=== PATIENT | male | born 1955 | race Caucasian/White ===

== ENCOUNTER 2016-04-15 13:24 | Emergency (ER) | payer OTHER ==
[~2016-04-15] VITALS: Ht 172.7 cm; Wt 66.5 kg
[~2016-04-15 13:24] MED LIST: HYDR-3720 PO; IBUP800T25 PO; METH-70 PO
[2016-04-15 13:27] VITALS: Ht 172.7 cm; Wt 66.5 kg
[2016-04-15] MEDS ORDERED: KETOROLAC 30 MG INJ IM STA (13:51)
[2016-04-15] MEDS ORDERED: IBUP-1542 PO (14:32)
[2016-04-15] MEDS ORDERED: ULT50 PO (14:32)
--- NOTE | 2016-04-15 14:34 | ERD ---
ER Documentation Chief Complaint Date/Time DATE: 04/15/16 TIME: 14:33 Chief Complaint neck pain x 2 weeks HPI This 60-year-old male presents with neck pain for last 2 weeks. He describes it as being on the posterior right side of his neck. He denies any specific inciting events or history of trauma. He believes it may have started while driving. He denies any bowel or bladder incontinence, weakness, fevers, cough, shortness breath or chest pain. ROS All systems reviewed and are negative except as per history of present illness. Medications Home Meds Active Scripts Tramadol HCl (Tramadol HCl) 50 Mg Tablet, 50 MG PO Q4 Y for PAIN, #20 TAB Prov:CHERYL BRIONES MD 04/15/16 Ibuprofen* (Motrin*) 600 Mg Tab, 600 MG PO Q6, #20 TAB Prov:CHERYL BRIONES MD 04/15/16 Hydrocodone Bit-Acetaminophen* ([place]*) 7.5-325 Tablet, 1 TAB PO Q4H Y for PAIN , #20 TAB Prov:ZOILA LOPEZSTOLOS A. DO 11/03/15 Methocarbamol* (Robaxin*) 750 Mg Tablet, 750 MG PO TID, #30 TAB Prov:LEKKOSAPOSTOLOS A. DO 11/03/15 Ibuprofen* (Motrin*) 800 Mg Tab, 800 MG PO Q6H Y for PAIN AND OR ELEVATED TEMP, #30 TAB Prov:LEKKOSAPOSTOLOS A. DO 11/03/15 Allergies Allergies: Coded Allergies: No Known Drug Allergies (Verified Allergy, Mild, 11/02/15) PMhx/Soc History of Surgery: No Anesthesia Reaction: No Hx Neurological Disorder: No Hx Respiratory Disorders: No Hx Cardiac Disorders: Yes (HIGH CHO-DIET CONTROLLED) Hx Psychiatric Problems: No Hx Miscellaneous Medical Probl: Yes (pt has one kidney) Hx Alcohol Use: No Hx Substance Use: No Hx Tobacco Use: Yes (quit 19 years ago) Physical Exam Vitals Vital Signs Date Time Temp Pulse Resp B/P Pulse Ox O2 Delivery O2 Flow Rate FiO2 04/15/16 13:27 97.4 87 20 126/84 98 Physical Exam Const: [] Alert, [id number]. Head: Atraumatic Eyes: Normal Conjunctiva ENT: Normal External Ears, Nose and Mouth. Airway patent. Neck: Full range of motion..~ No meningismus. There is some tenderness in the right cervical paraspinous muscles. There is no appreciable midline tenderness or deformities. There is no masses, warmth or erythema or induration. Resp: Clear to auscultation bilaterally Cardio: Regular rate and rhythm, no murmurs Abd: Soft, non tender, non distended. Normal bowel sounds Skin: No petechiae or rashes Back: No midline or flank tenderness Ext: No cyanosis, or edema Neur: Awake and alert Psych: Normal Mood and Affect Results 24 hrs Current Medications Medications (Trade) Dose Ordered Sig/Maria Fernanda Route PRN Reason Start Time Stop Time Status Last Admin Dose Admin Ketorolac Tromethamine (Toradol) 30 mg ONCE STAT IM 04/15/16 13:51 04/15/16 13:52 DC Procedures/MDM X-ray C spine 3V Interpreted by me: Bones: [No fracture] Joints: [No dislocation] Foreign body: [None]. Impression-no acute findings of C-spine x-ray except for mild degenerative changes Patient was given Toradol 30 mg IM. Patient presents with nontraumatic neck pain without evidence to suggest abscess, neurologic deficit, bacterial infection, fracture, dislocation. He likely has musculoskeletal strain pinched nerve. Patient was treated with ibuprofen and tramadol and observation at home. The patient was stable with no new complaints during the ER course. Clinically, there is no current evidence to suggest meningitis, sepsis, acute abdomen, pneumonia, acute coronary syndrome, pulmonary embolism, or any other emergent condition appearing to require further evaluation or hospitalization. The patient should certainly return for any new or worsening symptoms per the aftercare instructions. They should otherwise follow-up with her primary care doctor for reevaluation this week. Departure Diagnosis: Primary Impression: Neck pain Condition: Stable Patient Instructions: Neck Pain, No Trauma Additional Instructions: X RAY NORMAL. PROBABLAMENTE MUSCULO/ NERVIO. Cheque otro vez con peres doctor primario en el proximo baires or regresa para mas o nueva simptomas. CHERYL BRIONES MD Apr 15, 2016 14:34
--- NOTE | 2016-04-15 14:37 | RADRPT ---
PROCEDURE: XR Cervical Spine. CLINICAL INDICATION: Cervical spine pain. TECHNIQUE: AP, lateral and odontoid views of the cervical spine were performed. The images were re viewed on a PACS workstation. COMPARISON: None available FINDINGS: The alignment of the cervical spine is within normal limits. There are small anterior osteophytes f rom C4-5 to C6-7 without significant narrowing of the disc-spaces. The vertebral body height and os seous mineralization are normal. There is no evidence of fracture or dislocation. There is no signif icant facet arthropathy. There are no abnormal calcifications. The prevertebral soft tissues are nor mal. No radiopaque foreign bodies are identified. IMPRESSION: 1. Mild degenerative disc disease from C4-5 to C6-7 with preservation of the intervertebral discs. 2. Diffuse mild facet spondylosis. 3. No acute fracture. RPTAT: DD .Harrison Licea MD, Date Time Electronically viewed and signed by .Harrison Licea MD, on 04/15/2016 14:37 .S/
== END 2016-04-15 16:09 | disposition home or self-care (01) ==
LOC: FTE 13:24
DX: M54.2 Cervicalgia (principal)
CPT/HCPCS: 72040; 96372; J1885; Z7502

== ENCOUNTER 2017-10-17 15:17 | Observation (INO) | END 2017-10-18 17:16 | disposition home or self-care (01) ==

== ENCOUNTER 2018-03-13 12:12 | Emergency (ER) | END 2018-03-13 14:35 | disposition home or self-care (01) ==

== ENCOUNTER 2018-08-20 16:24 | Observation (INO) | payer OTHER ==
[~2018-08-20] VITALS: Ht 170.2 cm; Wt 63.0 kg
[2018-08-20] MEDS ORDERED: ASPIRIN 81 MG TAB PO STA (16:58)
[2018-08-20] MEDS ORDERED: NITROGLYCERIN 2% 1 GM OINT PKT TD STA (16:58)
[2018-08-20] MEDS ORDERED: NITROGLYCERIN (SL) 0.4 MG TAB SL PRN (17:00)
[2018-08-20] MEDS ORDERED: CLOP75TA19 PO (17:39)
[2018-08-20] MEDS ORDERED: ASPI-817 PO (17:39)
[2018-08-20] MEDS ORDERED: RANO500T2 PO (17:39)
[2018-08-20] MEDS ORDERED: ATOR-2 PO (17:40)
[2018-08-20] MEDS ORDERED: ONDANSETRON 4 MG INJ IV PRN (18:30)
[2018-08-20] MEDS ORDERED: ACETAMINOPHEN 325 MG TAB PO PRN (18:30)
--- NOTE | 2018-08-20 18:41 | ERD ---
ER Documentation Chief Complaint Chief Complaint c/o left sided chest pain, nonprovoked. Had heart stents 3 months ago HPI Patient is a 62-year-old male with coronary disease who presents with chest pain. He has left-sided chest pain which comes and goes and started this afternoon. Is a pressure-like type pain. He has had no treatment as of yet. He does not remember the name of his primary doctor or senior mobile application developer. ROS All systems reviewed and are negative except as per history of present illness. Medications Home Meds Reported Medications Atorvastatin* (Atorvastatin*) 80 Mg Tablet, 80 MG PO QHS, #30 TAB 08/20/18 Clopidogrel Bisulfate* (Clopidogrel Bisulfate*) 75 Mg Tablet, 75 MG PO DAILY, #30 TAB 08/20/18 Aspirin* (Aspirin* EC) 81 Mg Tablet.dr, 81 MG PO DAILY, TAB 08/20/18 Ranolazine* (Ranexa*) 500 Mg Tab.sr.12h, 500 MG PO Q12, TAB 08/20/18 Allergies Allergies: Coded Allergies: No Known Drug Allergies (Verified Allergy, Mild, 08/20/18) PMhx/Soc History of Surgery: No Anesthesia Reaction: No Hx Neurological Disorder: No Hx Respiratory Disorders: No Hx Cardiac Disorders: Yes (PA, HEART STENT X2) Hx Psychiatric Problems: No Hx Miscellaneous Medical Probl: Yes (hyperlipidemia) Hx Alcohol Use: No Hx Substance Use: No Hx Tobacco Use: No Smoking Status: Former smoker FmHx Family History: coronary disease Physical Exam Vitals Vital Signs Date Temp Pulse Resp B/P (MAP) Pulse Ox O2 O2 Flow FiO2 Time Delivery Rate 08/20/18 97.8 88 20 140/85 98 Room Air 18:35 (103) 08/20/18 Nasal 2 17:12 Cannula 08/20/18 97.8 72 20 145/96 98 16:39 (112) Physical Exam Const: No acute distress Head: Atraumatic Eyes: Normal Conjunctiva ENT: Normal External Ears, Nose and Mouth. Neck: Full range of motion. No meningismus. Resp: Clear to auscultation bilaterally Cardio: Regular rate and rhythm, no murmurs Abd: Soft, non tender, non distended. Normal bowel sounds Skin: No petechiae or rashes Back: No midline or flank tenderness Ext: No cyanosis, or edema Neur: Awake and alert Psych: Normal Mood and Affect Result Diagram: 08/20/18 1658 08/20/18 1718 Results 24 hrs Laboratory Tests Test 08/20/18 16:58 08/20/18 17:18 White Blood Count 7.7 10^3/ul Red Blood Count 4.96 10^6/ul Hemoglobin 14.9 g/dl Hematocrit 45.2 % Mean Corpuscular Volume 91.1 fl Mean Corpuscular Hemoglobin 30.0 pg Mean Corpuscular Hemoglobin Concent 33.0 g/dl Red Cell Distribution Width 12.2 % Platelet Count 252 10^3/UL Mean Platelet Volume 10.7 fl Immature Granulocytes % 0.500 % Neutrophils % 61.5 % Lymphocytes % 25.1 % Monocytes % 9.7 % Eosinophils % 2.3 % Basophils % 0.9 % Nucleated Red Blood Cells % 0.0 /100WBC Immature Granulocytes # 0.040 10^3/ul Neutrophils # 4.7 10^3/ul Lymphocytes # 1.9 10^3/ul Monocytes # 0.7 10^3/ul Eosinophils # 0.2 10^3/ul Basophils # 0.1 10^3/ul Nucleated Red Blood Cells # 0.0 10^3/ul Sodium Level 142 mmol/L Potassium Level 3.9 mmol/L Chloride Level 107 mmol/L Carbon Dioxide Level 27 mmol/L Anion Gap 8 Blood Urea Nitrogen 11 mg/dl Creatinine 0.87 mg/dl Est Glomerular Filtrat Rate mL/min > 60 mL/min Glucose Level 126 mg/dl Calcium Level 9.5 mg/dl Troponin I < 0.012 ng/ml Current Medications Medications Dose Sig/Maria Fernanda Start Time Status Last (Trade) Ordered Route PRN Stop Time Admin Dose Reason Admin Aspirin 162 mg ONCE STAT 08/20/18 DC 08/20/18 (Aspirin) PO 16:58 17:25 08/20/18 16:59 1 inch ONCE STAT 08/20/18 DC 08/20/18 Nitroglycerin TD 16:58 17:25 08/20/18 16:59 (Nitroglyceri n 2% Oint) 1 tab Q5M UP TO 3 08/20/18 Nitroglycerin DOSES PRN 17:00 SL .CHEST (Nitroglyceri PAIN n (Sl Tab) 0.4 Mg) Ondansetron 4 mg ER BRIDGE 08/20/18 HCl (Zofran PRN IV 18:30 Inj) NAUSEA/VOMITI 08/21/18 18:29 NG 650 mg ER BRIDGE 08/20/18 Acetaminophen PRN PO 18:30 (Tylenol .MILD PAIN 08/21/18 18:29 Tab) 1-3 OR TEMP Procedures/MDM EKG #1 read by me: Rate/Rhythm: Regular rate and rhythm at a normal rate Intervals: Normal Impression: No evidence of ischemia or arrhythmia EKG #2 read by me: Rate/Rhythm: Regular rate and rhythm at a normal rate Intervals: Normal Impression: No evidence of ischemia or arrhythmia Chest X-ray 1V Interpreted by me: Soft Tissue: No acute abnormalities Bones: No acute abnormalities Mediastinum/Cardiac Silhouette/Lungs: No acute abnormalities Patient is a 62-year-old male with coronary disease with a history of 2 stents who presents with chest pain. Initial troponin is negative. 2 EKGs were normal. Chest x-ray was negative for pneumonia or pneumothorax. I am concerned for acute coronary syndrome and the patient was given aspirin and nitroglycerin. I doubt pneumonia, pneumothorax, pulmonary embolism, or aortic dissection. The patient will be admitted to a telemetry observation bed to the care of Dr. Baez from the panel team. Departure Diagnosis: Primary Impression: Chest pain Chest pain type: unspecified Qualified Codes: R07.9 - Chest pain, unspecified Condition: DAO Albrecht MD August 20, 2018 18:41
--- NOTE | 2018-08-20 19:11 | HP ---
Date/Time of Note Date/Time of Note DATE: 08/20/18 TIME: 19:00 Assessment/Plan VTE Prophylaxis Pharmacological prophylaxis: heparin Lines/Catheters IV C[facility]ter Type [facility]from [facility]): [facility] Assessment/Plan Hospital Course 62 yo male with h/o CAD s/p PCI to LAD with recent normal angiogram presents with atypical chest pain - By history, seems consistent with pleuritic pain/Ella's twinge type pain. I doubt this is cardiac but given history we will trend troponin to exclude ACS. Will check a d-dimer to exclude PE given pleurisy. If tests negative he can be discharged to follow up with his regular monitor and storage bin tender CAD: - Continue aspirin, plavix, and atorvastatin Result Diagram: 08/20/18 1658 08/20/18 1718 Results 24hrs Laboratory Tests Test 08/20/18 16:58 08/20/18 17:18 White Blood Count 7.7 Red Blood Count 4.96 Hemoglobin 14.9 Hematocrit 45.2 Mean Corpuscular Volume 91.1 Mean Corpuscular Hemoglobin 30.0 Mean Corpuscular Hemoglobin Concent 33.0 Red Cell Distribution Width 12.2 Platelet Count 252 Mean Platelet Volume 10.7 H Immature Granulocytes % 0.500 H Neutrophils % 61.5 Lymphocytes % 25.1 Monocytes % 9.7 Eosinophils % 2.3 Basophils % 0.9 Nucleated Red Blood Cells % 0.0 Immature Granulocytes # 0.040 H Neutrophils # 4.7 Lymphocytes # 1.9 Monocytes # 0.7 Eosinophils # 0.2 Basophils # 0.1 Nucleated Red Blood Cells # 0.0 Sodium Level 142 Potassium Level 3.9 Chloride Level 107 Carbon Dioxide Level 27 Anion Gap 8 Blood Urea Nitrogen 11 Creatinine 0.87 Est Glomerular Filtrat Rate mL/min > 60 Glucose Level 126 Calcium Level 9.5 Troponin I < 0.012 HPI/ROS Admit Date/Time Admit Date/Time Hx of Present Illness 62 yo male with h/o CAD and previous stents who presents with CP Brings records with him. Followed by cardiologists at [facility]. Had LAD PCI performed last year. Had atypical chest pain. MRI showed mild scar. Went for angiogram showing patient vessels and stents in 06/2018. Has suffered from vertigo for which he sees vestibular specialists at [facility]. Seems his monitor and storage bin tender has deemed these issues non-cardiac in origin. Today he presents with a few episodes of stabbing chest pain. Occured at rest. [place] a few fleeting stabbing pleuritc pains with breathing. Resolved in seconds. Was scared to take deep breaths as a result He is adherent to DAPT and statin. ROS Constitutional: no complaints, improved Eyes: no complaints ENT: no complaints Respiratory: no complaints Cardiovascular: no complaints Gastrointestinal: no complaints Genitourinary: no complaints Musculoskeletal: no complaints Skin: no complaints Neurologic: no complaints Endocrine: no complaints Lymphatic: no complaints Psychological: no complaints, nl mood/affect Immunologic: no complaints PMH/Family/Social Past Medical History Medical History: coronary artery disease Medications Current Medications Nitroglycerin (Nitroglycerin (Sl Tab) 0.4 Mg) 1 tab Q5M UP TO 3 DOSES PRN SL .CHEST PAIN; Start 08/20/18 at 17:00 Ondansetron HCl (Zofran Inj) 4 mg ER BRIDGE PRN IV NAUSEA/VOMITING; Start 08/20/18 at 18:30; Stop 08/21/18 at 18:29 Acetaminophen (Tylenol Tab) 650 mg ER BRIDGE PRN PO .MILD PAIN 1-3 OR TEMP; Start 08/20/18 at 18:30; Stop 08/21/18 at 18:29 Coded Allergies: No Known Drug Allergies (Verified Allergy, Mild, 08/20/18) Past Surgical History Past Surgical Hx: no surgical history Family History Significant Family History: no pertinent family hx Social History Smoking Status: Former smoker Drug Use: none Exam/Review of Systems Vital Signs Vitals Vital Signs Date Temp Pulse Resp B/P (MAP) Pulse Ox O2 O2 Flow FiO2 Time Delivery Rate 08/20/18 97.8 88 20 140/85 98 Room Air 18:35 (103) 08/20/18 2 17:12 Exam Constitutional: alert, oriented, well developed Psych: no complaints, nl mood/affect Head: normocephalic, atraumatic Eyes: nl conjunctiva, EOMI, nl lids, nl sclera, PERRL ENMT: nl external ears & nose, nl lips & teeth, nl nasal mucosa & septum Neck: supple, non-tender Respiratory: clear to auscultation, normal air movement Cardiovascular: regular rate and rhythm, nl pulses Gastrointestinal: soft, nl liver, spleen, non-tender Musculoskeletal: nl extremities to inspection Extremities: normal pulses Neurological: HOSPITAL PHARMACY DIRECTOR II-XII intact, nl mental status, nl speech, nl strength Skin: nl turgor; No rash or lesions Lymph: nl lymph nodes DEANNA CHAVIRA MD August 20, 2018 19:11
[2018-08-20] MEDS ORDERED: HYDROCODONE/APAP (5/325) TAB PO PRN (19:30)
[2018-08-20] MEDS ORDERED: NACL 0.9% 3 ML SYG IV SCH (19:30)
[2018-08-20 20:32] VITALS: Ht 170.2 cm; Wt 63.0 kg
[2018-08-20 20:42] VITALS: BP 111/76; PULSE 75; RESP 20
[2018-08-20 20:49] VITALS: PULSE 56
[2018-08-20] MEDS ORDERED: ATORVASTATIN 80 MG TAB PO SCH (21:00)
[2018-08-20] MEDS: RANOLAZINE (SR) 500 MG TAB PO SCH (21:37)
[2018-08-21] VITALS (7 sets, daily range): BP systolic 97–122; BP diastolic 57–77; PULSE 53–108; RESP 18–20
[2018-08-21] MEDS: RANOLAZINE (SR) 500 MG TAB PO SCH (08:14)
[2018-08-21] MEDS ORDERED: CLOPIDOGREL 75 MG TAB PO SCH (09:00)
[2018-08-21] MEDS ORDERED: ASPIRIN (EC) 81 MG TAB PO SCH (09:00)
--- NOTE | 2018-08-21 12:27 | DS ---
Date/Time of Note Date/Time of Note DATE: 08/21/18 TIME: 12:17 Discharge Summary Admission/Discharge Info Admit Date/Time August 20, 2018 at 18:31 Discharge Date/Time Discharge Diagnosis Noncardiac chest pain Patient Condition: Stable Hx of Present Illness 62 yo male with h/o CAD and previous stents who presents with CP Brings records with him. Followed by cardiologists at [facility]. Had LAD PCI performed last year. Had atypical chest pain. MRI showed mild scar. Went for angiogram showing patient vessels and stents in 06/2018. Has suffered from vertigo for which he sees vestibular specialists at [facility]. Seems his precipitate washer has deemed these issues non-cardiac in origin. Today he presents with a few episodes of stabbing chest pain. Occured at rest. [place] a few fleeting stabbing pleuritc pains with breathing. Resolved in seconds. Was scar ed to take deep breaths as a result He is adherent to DAPT and statin. Hospital Course 62 yo male with h/o CAD s/p PCI to LAD with recent normal angiogram presents with atypical chest pain By history, seems consistent with pleuritic pain/Ella's twinge type pain. I doubt this is cardiac as troponins were negative to exclude ACS and pain not consistent with angina. No symptosm of PE. Completely asymptoamtic so discharged to follow up with his PMD Home Meds Reported Medications Atorvastatin* (Atorvastatin*) 80 Mg Tablet, 80 MG PO QHS, #30 TAB 08/20/18 Clopidogrel Bisulfate* (Clopidogrel Bisulfate*) 75 Mg Tablet, 75 MG PO DAILY, #30 TAB 08/20/18 Aspirin* (Aspirin* EC) 81 Mg Tablet.dr, 81 MG PO DAILY, TAB 08/20/18 Ranolazine* (Ranexa*) 500 Mg Tab.sr.12h, 500 MG PO Q12, TAB 08/20/18 Primary Care Provider Not On Staff Doctor Pending Labs Laboratory Tests Test 08/20/18 16:58 08/20/18 17:18 08/20/18 23:04 08/21/18 05:27 White Blood 7.7 Count 10^3/ul (4.8-10 .8) Red Blood 4.96 Count 10^6/ul (4.70-6 .10) Hemoglobin 14.9 g/dl (14.0-18.0 ) Hematocrit 45.2 % (42.0-52.0) Mean 91.1 Corpuscular fl (82.0-101.0) Volume Mean 30.0 Corpuscular pg (29.0-33.0) Hemoglobin Mean 33.0 Corpuscular g/dl (32.0-37.0 Hemoglobin Conc ) ent Red Cell 12.2 Distribution % (11.5-14.5) Width Platelet Count 252 10^3/UL (140-41 5) Mean Platelet 10.7 Volume fl (7.4-10.4) Immature 0.500 Granulocytes % % (0.001-0.429) Neutrophils % 61.5 % (39.0-77.0) Lymphocytes % 25.1 % (15.0-51.0) Monocytes % 9.7 % (0.0-11.0) Eosinophils % 2.3 % (0.0-7.0) Basophils % 0.9 % (0.0-2.0) Nucleated Red 0.0 Blood Cells % /100WBC (0.0-0. 0) Immature 0.040 Granulocytes # 10^3/ul (0.0-0. 031) Neutrophils # 4.7 10^3/ul (1.6-7. 5) Lymphocytes # 1.9 10^3/ul (0.8-2. 9) Monocytes # 0.7 10^3/ul (0.3-0. 9) Eosinophils # 0.2 10^3/ul (0.0-0. 5) Basophils # 0.1 10^3/ul (0.0-0. 1) Nucleated Red 0.0 Blood Cells # 10^3/ul (0.0-0. 0) Sodium Level 142 143 mmol/L (135-14 mmol/L (135-14 4) 4) Potassium 3.9 4.0 Level mmol/L (3.5-5. mmol/L (3.5-5. 1) 1) Chloride Level 107 110 mmol/L (97-110 mmol/L (97-110 ) ) Carbon Dioxide 27 27 Level mmol/L (21-31) mmol/L (21-31) Anion Gap 8 (5-13) 6 (5-13) Blood Urea 11 12 Nitrogen mg/dl (7-20) mg/dl (7-20) Creatinine 0.87 0.88 mg/dl (0.61-1. mg/dl (0.61-1. 24) 24) Est Glomerular > 60 > 60 Filtrat mL/min (>60) mL/min (>60) Rate mL/min Glucose Level 126 99 mg/dl (70-220) mg/dl (70-220) Calcium Level 9.5 9.1 mg/dl (8.4-10. mg/dl (8.4-10. 2) 2) Troponin I < 0.012 < 0.012 < 0.012 ng/ml (0.000-0 ng/ml (0.000-0 ng/ml (0.000-0 .120) .120) .120) Creatine 225 203 Kinase IU/L (23-200) IU/L (23-200) Creatine Kinase 2.6 2.6 Index Creatinine 5.92 5.22 Kinase MB ng/ml (0.0-2.4 ng/ml (0.0-2.4 (Mass) ) ) Hemoglobin A1c 5.4 % (0-5.9) Total 0.7 Bilirubin mg/dl (0.2-1.3 ) Direct 0.00 Bilirubin mg/dl (0.00-0. 20) Indirect 0.7 Bilirubin mg/dl (0-1.1) Aspartate Amino 35 Transf (AST/SGO IU/L (15-46) T) Alanine 59 Aminotransferas IU/L (13-69) e (ALT/SGPT) Alkaline 79 Phosphatase IU/L (42-121) Total Protein 5.9 g/dl (6.1-8.1) Albumin 3.4 g/dl (3.3-4.9) Globulin 2.50 g/dl (1.3-3.2) Albumin/Globuli 1.36 n Ratio DEANNA CHAVIRA MD August 21, 2018 12:27
--- NOTE | 2018-08-21 14:28 | RADRPT ---
Vent Rate: 64 bpm RR Interval: 0 msec MT Interval: 134 msec QRS Duration: 80 msec QT Interval: 378 msec QTC Interval: 389 msec P-R-T [place]: 57 - 62 - 84 degrees Normal sinus rhythm Normal ECG Electronically Signed By: [facility]
--- NOTE | 2018-08-21 14:28 | RADRPT ---
Vent Rate: 63 bpm RR Interval: 0 msec NE Interval: 146 msec QRS Duration: 78 msec QT Interval: 384 msec QTC Interval: 392 msec P-R-T [place]: 68 - 64 - 85 degrees Normal sinus rhythm Normal ECG Electronically Signed By: [facility]
== END 2018-08-21 14:18 | disposition home or self-care (01) ==
LOC: E/R 16:24 → SUATTDRO 18:26 → 6WM 18:31
PROVIDERS: ADMIT Internal Medicine; ATTEND Internal Medicine
DX: R07.89 Other chest pain (principal); E78.5 Hyperlipidemia, unspecified; I25.10 Atherosclerotic heart disease of native coronary artery without angina pectoris; Z95.5 Presence of coronary angioplasty implant and graft; Z87.891 Personal history of nicotine dependence; Z79.82 Long term (current) use of aspirin
CPT/HCPCS: 36415; 71045; 80048; 80053; 82550; 82553; 83036; 84484; 85025; 93005; Z7500; Z7502; Z7610; G0378